=== PATIENT | female | born 1950 | race Caucasian/White ===

== ENCOUNTER 2016-07-23 08:16 | Outpatient (CLI) | payer MEDICARE, OTHER | END 2016-07-23 08:17 | disposition home or self-care (01) | DX: Z12.31 Encounter for screening mammogram for malignant neoplasm of breast (principal) ==

== ENCOUNTER 2019-04-01 13:53 | Outpatient (CLI) | payer MEDICARE, OTHER | END 2019-04-01 13:54 | disposition home or self-care (01) | LOC: LAB 13:53 | PROVIDERS: ATTEND Internal Medicine | DX: Z13.9 Encounter for screening, unspecified (principal) | CPT/HCPCS: 36415; 81599; 86480 ==

== ENCOUNTER 2022-08-21 14:44 | Outpatient (CLI) | payer MEDICARE, OTHER ==
--- NOTE | 2022-08-22 10:58 | Mammography Report ---
BILATERAL DIGITAL SCREENING MAMMOGRAM 3D/2D: 08/21/2022 CLINICAL: Routine screening. Comparison is made to exam dated: 07/23/2016 mammogram - [facility]. Both breasts are almost entirely fatty (category a/<25% glandular tissue). No significant masses, calcifications, or other findings are seen in either breast. There has been no significant interval change. IMPRESSION: NEGATIVE There is no mammographic evidence of malignancy. A 1 year screening mammogram is recommended. Based on the Tyrer Cuzick model (a risk assessment model) the patients lifetime risk is 1.0% and her 10 year risk is 0.9%. According to the ACR, ACS, and NCCN guidelines, an annual breast MRI exam aniket g with mammogram is recommended if the patients lifetime risk is 20% or greater. This exam was interpreted at Station ID: [id number]. NOTE: For mammograms, a report in lay terms will be sent to the patient. Approximately 15% of breast malignancies will not be visualized mammographically. In the management of a palpable breast mass, a negative mammogram must not discourage biopsy of a clinically suspicious lesion. Electronically Signed By: Lalita [email or web address]:08/21/2022 17:31:41 ACR BI-RADS Category 1: Negative 3341F PARENCHYMAL PATTERN: (F) - The breast(s) demonstrate(s) diffuse fatty replacement. BI-RADS CATEGORY: (1) - 1 RECOMMENDATION: (ANNUAL) - Recommend routine annual screening mammography. [id number] 1 year screening LATERALITY: (B)
== END 2022-08-21 14:45 | disposition home or self-care (01) ==
LOC: DI 14:44
PROVIDERS: ATTEND Internal Medicine
DX: Z12.31 Encounter for screening mammogram for malignant neoplasm of breast (principal)

== ENCOUNTER 2023-10-10 10:30 | Outpatient (CLI) | payer MEDICARE, OTHER ==
--- NOTE | 2023-10-10 11:29 | DEXA Report ---
PROCEDURE: Dexa Spine and/or Hip INDICATIONS: POST MENOPAUSAL TECHNIQUE: Dual energy x-ray absorptiometry (DXA) was performed on a [employer] System. Regions measur ed are the AP Spine, femoral neck, and if needed forearm. COMPARISON: None FINDINGS: Lumbar Spine: Bone Mineral Density: 1.201 g/cm/cm,T score: 0.2. Left Femoral Neck: Bone Mineral Density: 0.758 g/cm/cm, T score: -2.0. Left Hip: Bone Mineral Density: 0.946 g/cm/cm,T score: -0.5. (T score greater or equal to -1.0: NORMAL) (T score from -1.1 to -2.4: OSTEOPENIA) (T score less than or equal to -2.5 to: OSTEOPOROSIS) Impression: By WHO criteria, this patient has low bone density (osteopenia). . Patients with diagnosis of osteoporosis or osteopenia should have regular bone mineral density assess ment. For those eligible for Medicare, routine testing is allowed once every 2 years. Testing frequ ency can be increased for patients who have rapidly progressing disease or for those who are receivin g medical therapy to restore bone mass. Reviewed by: Niels Arechiga MD on 10/10/2023 11:27 AM PDT Approved by: Niels Arechiga MD on 10/10/2023 11:27 AM PDT Station ID: [id number]
== END 2023-10-10 10:31 | disposition home or self-care (01) ==
LOC: DI 10:30
PROVIDERS: ATTEND Internal Medicine
DX: M85.88 Other specified disorders of bone density and structure, other site (principal); Z78.0 Asymptomatic menopausal state

== ENCOUNTER 2023-10-10 10:38 | Outpatient (CLI) | payer MEDICARE, OTHER ==
--- NOTE | 2023-10-13 09:19 | Mammography Report ---
BILATERAL DIGITAL SCREENING MAMMOGRAM 3D/2D: 10/10/2023 CLINICAL: Routine screening. Comparison is made to exams dated: 08/21/2022 mammogram and 07/23/2016 mammogram - [facility]. Both breasts are almost entirely fatty (category a/<25% glandular tissue). No significant masses, calcifications, or other findings are seen in either breast. There has been no significant interval change. IMPRESSION: NEGATIVE There is no mammographic evidence of malignancy. A 1 year screening mammogram is recommended. Based on the Tyrer Cuzick model (a risk assessment model) the patient's lifetime risk is 0.9% and her 10 year risk is 0.9%. According to the ACR, ACS, and NCCN guidelines, an annual breast MRI exam aniket g with mammogram is recommended if the patient's lifetime risk is 20% or greater. This exam was interpreted at Station ID: [id number]. NOTE: For mammograms, a report in lay terms will be sent to the patient. Approximately 15% of breast malignancies will not be visualized mammographically. In the management of a palpable breast mass, a negative mammogram must not discourage biopsy of a clinically suspicious lesion. Electronically Signed By: Meena [email or web address]:10/10/2023 16:19:25 letter sent: No_Letter ACR BI-RADS Category 1: Negative 3341F PARENCHYMAL PATTERN: (F) - The breast(s) demonstrate(s) diffuse fatty replacement. BI-RADS CATEGORY: (1) - 1 RECOMMENDATION: (ANNUAL) - Recommend routine annual screening mammography. [id number] 1 year screening LATERALITY: (B)
== END 2023-10-10 10:39 | disposition home or self-care (01) ==
LOC: DI 10:38
PROVIDERS: ATTEND Internal Medicine
DX: Z12.31 Encounter for screening mammogram for malignant neoplasm of breast (principal)

== ENCOUNTER 2024-01-22 21:50 | Emergency (ER) | payer MEDICARE, OTHER ==
[2024-01-22 22:03] VITALS: O2SAT 99
[2024-01-22] MEDS: OXYMETAZOLINE HCL 100 SPRAYS BOTTLE NAS STA (22:15)
[2024-01-22] MEDS: TRANEXAMIC ACID 1,000 MG/10 ML VIAL NAS STA (22:45)
[2024-01-22] MEDS: HYDROmorphone 1 MG/ML CARPUJECT IM STA (22:57)
--- NOTE | 2024-01-22 23:36 | ED Physician Documentation ---
PD HPI HEENT - Stated complaint Stated Complaint: BLOODY NOSE - Chief complaint Chief Complaint: Heent - History obtained from History obtained from: Patient - Additional information Additional information: 73-year-old woman presents with persistent spontaneous epistaxis this evening despite playing pressure at home. No trauma to the area. Prior history of nosebleeds not on blood thinners. PD PAST MEDICAL HISTORY - Past Medical History Past Medical History: Yes Cardiovascular: Hypertension Endocrine/Autoimmune: HyPOthyroidism - Past Surgical History Past Surgical History: Yes General: Cholecystectomy /[employer]: Hysterectomy - Present Medications Home Medications: Ambulatory Orders Medication Instructions Recorded Confirmed Levothyroxine [Synthroid] 1 tab PO DAILY 02/09/14 02/09/14 Lisinopril 1 tab PO DAILY 02/09/14 02/09/14 Timolol [Betimol] 2 drops EACHEYE DAILY 02/09/14 02/09/14 - Allergies Allergies/Adverse Reactions: Allergies Allergy/AdvReac Type Severity Reaction Status Date / Time codeine Allergy Hives Verified 01/22/24 22:02 - Social History Does the pt smoke?: No Smoking Status: Never smoker Does the pt drink ETOH?: No Does the pt have substance abuse?: No - Immunizations Immunizations are current?: No Immunizations: No immun - POLST Patient has POLST: No PD ED PE NORMAL - Vitals Vital signs reviewed: Yes - General General: Alert and oriented X 3, No acute distress, Well developed/nourished - HEENT HEENT: Atraumatic, PERRL, EOMI, Moist mucous membranes, Pharynx benign, Other (Left-sided epistaxis. No visible source of anterior bleeding.) Results - Vitals Vitals: Vital Signs - 24 hr 01/22/24 21:58 Temperature 36.5 C Heart Rate 107 H Respiratory 18 Rate Blood Pressure 153/123 H O2 Saturation 99 Oxygen O2 Source Room air Procedures - Epistaxis - Minor Site: Left Preparation: Clots removed, Afrin, Clamp / pressure applied Treatment: Anterior rhinorocket (With TXA) Other: Observed - no bleeding, Pt tolerated well, O2 sat WNL, Referred to ENT PD Medical Decision Making - ED course ED course: 73-year-old woman presented with left-sided epistaxis. Afrin was applied nasal clamps and inspected the nasal passage without any evidence of anterior bleeding source for cautery. Rhino Rocket was placed with TXA and left-sided bleeding stopped at that time. After period of monitoring patient was discharged to follow-up with ENT. Return precautions given. Departure - Departure Disposition: 01 Home, Self Care Clinical Impression: Epistaxis Condition: Stable Instructions: ED Nosebleed Follow-Up: Ajay Tristan DO [Physician No Access] - Comments: You are seen in the emergency department for nosebleed. Keep the nasal packing in until you follow-up with ENT in 24 to 48 hours. Return to the emergency department for new or worsening symptoms or other concerns. Forms: PCP List
[2024-01-22 23:42] VITALS: BP 154/82
== END 2024-01-22 23:38 | disposition home or self-care (01) ==
LOC: ED 21:50
DX: R04.0 Epistaxis (principal); I10 Essential (primary) hypertension; E03.9 Hypothyroidism, unspecified
CPT/HCPCS: 30901; 96372; 99283; A9270; J1170